=== PATIENT | female | born 1995 | race Caucasian/White ===

== ENCOUNTER 2018-08-04 09:55 | Outpatient (CLI) | payer BC, OTHER ==
[2018-08-04] MEDS ORDERED: Iopamidol 370 76% 100 ML VIAL ONE (11:50)
--- NOTE | 2018-08-04 12:31 | CT ---
CT OF ABDOMEN AND PELVIS PERFORMED WITH INTRAVENOUS CONTRAST ENHANCEMENT: HISTORY: Abdominal pain. FINDINGS: The lung bases are clear. The liver, spleen, pancreas, and gallbladder regions appear unremarkable. There appears to be some m inimal fluid adjacent to the gallbladder. The patient does have a ventriculoperitoneal shunt tube. Right and left adrenal glands and right and left kidneys are normal in size. There is no significant periaortic or mesenteric lymphadenopathy. CT OF PELVIS PERFORMED WITH INTRAVENOUS CONTRAST ENHANCEMENT: The distal end of the ventriculoperitoneal shunt tube overlies the left iliac crest. There is some f ree fluid within the pelvis. There is a moderate amount of stool in the rectosigmoid region. The ap pendix is normal. IMPRESSION: 1. A moderate amount of stool in the rectosigmoid colon. 2. Ventriculoperitoneal shunt tube in place. POS: LAINE
== END 2018-08-04 09:56 | disposition home or self-care (01) ==
LOC: CT 09:55
PROVIDERS: ATTEND Obstetrics & Gynecology
DX: R10.2 Pelvic and perineal pain (principal); Z98.2 Presence of cerebrospinal fluid drainage device
CPT/HCPCS: 74177

== ENCOUNTER 2023-01-15 11:00 | Outpatient (CLI) | payer MEDICARE, BC, MEDICAID | END 2023-01-15 11:01 | disposition home or self-care (01) | LOC: EDSTATUS 15:18 | PROVIDERS: ATTEND Internal Medicine | DX: Z00.00 Encounter for general adult medical examination without abnormal findings (principal); I74.3 Embolism and thrombosis of arteries of the lower extremities; G80.9 Cerebral palsy, unspecified; G91.1 Obstructive hydrocephalus ==

== ENCOUNTER 2023-02-27 11:03 | Day surgery (SDC) | payer MEDICARE, BC, MEDICAID ==
[2023-02-26 09:24] VITALS: BMI 26.1
[2023-02-27] MEDS ORDERED: Midazolam HCl 2 mg/2 ml Vial ONE (13:25)
[2023-02-27] MEDS ORDERED: PROPOFOL 200 MG/20 ML VIAL ONE (13:36)
[2023-02-27] MEDS ORDERED: PHENYLEPHRINE-NS 100 MCG/ML 10 ML SYRINGE ONE (13:36)
[2023-02-27] MEDS ORDERED: Glycopyrrolate 0.2 MG/ML 5 ML SYRINGE ONE (13:36)
[2023-02-27] MEDS ORDERED: Lidocaine 1% PF 5 ML VIAL ONE (13:36)
== END 2023-02-27 14:37 | disposition home or self-care (01) ==
LOC: SDC 11:03
PROVIDERS: ATTEND Internal Medicine Gastroenterology
PROC: 0DB58ZX Excision of Esophagus, Via Natural or Artificial Opening Endoscopic, Diagnostic (ICD-10-PCS; principal; 2023-02-27)
DX: K21.00 Gastro-esophageal reflux disease with esophagitis, without bleeding (principal); K31.7 Polyp of stomach and duodenum; K31.4 Gastric diverticulum; K29.50 Unspecified chronic gastritis without bleeding; K44.9 Diaphragmatic hernia without obstruction or gangrene; G40.909 Epilepsy, unspecified, not intractable, without status epilepticus; F32.A Depression, unspecified; D50.9 Iron deficiency anemia, unspecified; K59.00 Constipation, unspecified; G93.40 Encephalopathy, unspecified; Z79.899 Other long term (current) drug therapy
CPT/HCPCS: 88305; J2250; J2704